=== PATIENT | female | born 1950 | race Asian ===

== ENCOUNTER 2017-07-17 14:26 | Emergency (ER) | payer OTHER ==
[2017-07-17 14:42] VITALS: BP 137/70
--- NOTE | 2017-07-17 14:58 | UC ---
Eye Complaint HPI - HPI Summary HPI Summary: 66 yo female with left eye lid swelling and pain x 1-2 days tearing no pus - History of Current Complaint Chief Complaint: UCEye Stated Complaint: SWOLLEN LEFT EYE Time Seen by Provider: 07/17/17 14:38 Hx Obtained From: Patient, Family/[employer] - son Hx Last Menstrual Period: years ago. Onset/Duration: Gradual Onset, Lasting Days Timing: Constant Severity Initially: Mild Pain Intensity: 4 Pain Scale Used: 0-10 Numeric Location of Injury: Eye Lid (upper) - left Character: Dull Aggravating Factor(s): Nothing Alleviating Factor(s): Nothing Associated Signs And Symptoms: Positive: Drainage (Clear) Eyes: 1 - descrete "pea-sized: lump with upper lid edema,. sclera not red - Risk Factors Penetrating Injury Risk Factor: Negative Globe Rupture Risk Factors: Negative Acute Glaucoma Risk Factors: Negative Optic Artery Occlusion Risk Factors: Negative - Allergies/Home Medications Allergies/Adverse Reactions: Allergies Allergy/AdvReac Type Severity Reaction Status Date / Time No Known Allergies Allergy Verified 07/17/17 14:42 PMH/Surg Hx/FS Hx/Imm Hx Previously Healthy: Yes Other History Of: Negative For: HIV, Hepatitis B, Hepatitis C - Surgical History Surgical History: Yes Surgery Procedure, Year, and Place: bilat legs broken - Family History Known Family History: Negative: Renal Disease, Blood Disorder - Social History Alcohol Use: None Substance Use Type: None Smoking Status (MU): Never Smoked Tobacco - Immunization History Most Recent Influenza Vaccination: 2017 Most Recent Tetanus Shot: Unsure Review of Systems Constitutional: Negative Skin: Negative Eyes: Drainage - tearing left eye, Other - left upper lid edema and pain ENT: Negative Respiratory: Negative Cardiovascular: Negative Gastrointestinal: Negative Genitourinary: Negative Motor: Negative Neurovascular: Negative Musculoskeletal: Negative Neurological: Negative Psychological: Negative Is Patient Immunocompromised?: No All Other Systems Reviewed And Are Negative: Yes Physical Exam Triage Information Reviewed: Yes Appearance: Well-Appearing, No Pain Distress, Well-Nourished Vital Signs: Initial Vital Signs Temp 97.7 F 07/17/17 14:36 Pulse 64 07/17/17 14:36 Resp 14 07/17/17 14:36 BP 137/70 07/17/17 14:36 Pulse Ox 100 07/17/17 14:36 Vital Signs Reviewed: Yes Eyes: Positive: Conjunctiva Clear, Other: - see image ENT: Negative: Nasal congestion, Nasal drainage, Trismus, Muffled voice, Hoarse voice Neck: Positive: Supple Respiratory: Positive: No respiratory distress, No accessory muscle use Neurological: Positive: Alert Psychological Exam: Normal Skin Exam: Normal Eye Complaint Course/Dx - Differential Dx/Diagnosis Provider Diagnoses: chalazion left upper eye lid with associated lid cellulitis Discharge - Discharge Plan Condition: Stable Disposition: HOME Prescriptions: Cephalexin CAP* [Keflex CAP*] 500 mg PO QID #28 cap Patient Education Materials: Chalazion (ED) Referrals: Donovan Zazueta MD [Medical Doctor] - 3 Days Additional Instructions: warm compresses recheck for new or worsening symptoms if not better in 2-3 days you should follow up with your eye doctor let us know if you have trouble making an appt
== END 2017-07-17 15:05 | disposition home or self-care (01) ==
LOC: UCEAST 14:26
DX: H00.14 Chalazion left upper eyelid (principal); H00.034 Abscess of left upper eyelid
CPT/HCPCS: 99212; G0463

== ENCOUNTER 2018-05-25 06:39 | Day surgery (SDC) | payer MEDICAID, OTHER ==
[~2018-05-25 06:39] MED LIST: Acetaminophen TAB* 325 MG PO PRN; Buffered Lidocaine 0.9% SYRIN* 5 ML/SYR SYRINGE INTRADERM ONE
[2018-05-25] MEDS ORDERED: fentaNYL* 50 MCG/ML 2 ML VIAL (100 MCG VIAL) ONE (07:17)
[2018-05-25] MEDS ORDERED: Midazolam* 1 MG/ML 2 ML VIAL (2 MG) ONE (07:17)
[2018-05-25 08:01] VITALS: BP 104/61
--- NOTE | 2018-05-25 09:39 | OP ---
DATE OF OPERATION: 05/25/2018. DATE OF : 1950. SURGEON: Donovan Zazueta M.D. PREOPERATIVE DIAGNOSIS: Cataract left eye. POSTOPERATIVE DIAGNOSIS: Cataract left eye. OPERATIVE PROCEDURE: Extracapsular cataract extraction with intraocular lens implant left eye. PROCEDURE: The patient was brought to the operating room after being given 1/2% Alcaine with epineph rine drops in the preoperative area. The eye was prepped and draped in the usual sterile fashion. S terile drape and eyelid speculum were placed. Again, topical 1/2% Alcaine with epinephrine was given . A paracentesis incision was made at the 3 o'clock position with the No.75 blade. Clear cornea inc ision 2.2 x 2.2-mm was created at the 6 o'clock position starting at the anterior limbus using the 2. 2-mm keratome. The anterior chamber was irrigated with 0.4 mL of 1% non-preservative intracameral li docaine and filled with DisCoVisc. A capsulorrhexis was completed using the cystotome and the Utrata forceps. Hydrodissection was performed with balanced salt solution. The lens nucleus was removed wi th the Phacoemulsification handpiece without incident. Cortex was removed with the irrigation-aspira tion handpiece. The capsular bag was re-inflated using DisCoVisc and an SN60WF 25.5 implant was inse rted with the shooter. The irrigation-aspiration handpiece was used to remove all residual DisCoVisc . The eye was refilled with balanced salt solution and the wound checked and found to be watertight. Topical Maxitrol drops were given. [id number]/[facility] #: [id number]
[2018-05-25] MEDS ORDERED: Povidone Iodine 5% OPTH* 30 ML BTL ONE (10:50)
[2018-05-25] MEDS ORDERED: Phenylephrine 2.5% OPTH.SOL* 2 ML BTL ONE (10:50)
[2018-05-25] MEDS ORDERED: Neomycin/Polymy/Dex OPTH.SUSP* MAXITROL 0.1% 5 ML ONE (10:50)
[2018-05-25] MEDS ORDERED: Lidocaine 2% EPI 1:200000 MPF*10-20 ML VIAL ONE (10:50)
[2018-05-25] MEDS ORDERED: acetaZOLAMIDE TAB* 250 MG ONE (10:50)
[2018-05-25] MEDS ORDERED: Lidocaine 1%* 5 ML VIAL ONE (10:50)
[2018-05-25] MEDS ORDERED: Cyclopentolate 1% OPTH.SOL* 2 ML BTL ONE (10:50)
[2018-05-25] MEDS ORDERED: Ketorolac 0.5% OPHTH (NF) 0.5 % 5 ML BTL ONE (10:50)
[2018-05-25] MEDS ORDERED: Proparacaine 0.5% OPHTH.SOL* 15 ML BTL ONE (10:51)
== END 2018-05-25 08:15 | disposition home or self-care (01) ==
LOC: OREAST 06:39
PROVIDERS: ATTEND Specialist
DX: H25.812 Combined forms of age-related cataract, left eye (principal); R73.01 Impaired fasting glucose; E04.9 Nontoxic goiter, unspecified
CPT/HCPCS: A9270-GY; J2250; J3010; V2632